=== PATIENT | male | born 1965 | race Caucasian/White ===

== ENCOUNTER 2021-03-29 11:12 | Emergency (ER) | payer BC ==
[~2021-03-29] VITALS: Ht 182.9 cm; Wt 104.3 kg
[2021-03-29] MEDS ORDERED: DELSYM30 MG/5 ML PO (11:33)
== END 2021-03-29 14:15 | disposition home or self-care (01) ==
LOC: ER1 11:12
DX: Z23 Encounter for immunization (principal); U07.1 COVID-19; Z88.1 Allergy status to other antibiotic agents
CPT/HCPCS: 99283; M0243

== ENCOUNTER → 2021-09-29 | Outpatient (CLI) | payer BC ==
[~2021-09-29] MED LIST: DELSYM30 MG/5 ML PO
== END ==
LOC: RAD 07:41
DX: M25.552 Pain in left hip (principal); M25.562 Pain in left knee; M47.26 Other spondylosis with radiculopathy, lumbar region; M47.816 Spondylosis without myelopathy or radiculopathy, lumbar region; M16.12 Unilateral primary osteoarthritis, left hip
CPT/HCPCS: 72100; 73502; 73562